=== PATIENT | male | born 1985 | race Caucasian/White ===

== ENCOUNTER 2020-04-28 11:19 | Inpatient (IN) | payer OTHER, SELFPAY ==
[2020-04-28 11:35] VITALS: BP 130/88; PULSE 127; RESP 14; TEMP 36.9; O2SAT 100; BMI 26.4
--- NOTE | 2020-04-28 11:44 | ED_ITS ---
Documented by User: ERIC Avila 04/28/20 16:32 HPI - Extremity Problem General: Chief complaint: Extremity Problem,Nontraumatic Stated complaint: L FOOT INFECTION Time Seen by Provider: 04/28/20 11:44 Source: patient Mode of arrival: ambulatory Limitations: no limitations History of Present Illness: HPI Narrative: Patient is a 34-year-old male who presents to ED today for evaluation for a left foot infection. Patient tells me approximately 8 days ago he began noticing a small amount of redness to the medial aspect of his left foot. He denies any injury or trauma. Denies any small scratches, abrasions, punctures, etc. patient states since that time. Redness has progressed substantially. He has noticed a large pus pocket to his foot. Patient is not running fevers. He has no known history of staph or MRSA. He is an IV drug user. Complaint: extremity pain and extremity swelling Onset (ago): day(s) Pain Consistency: constant Location: left Radiation: none Exacerbating factors: weight bearing, walking and palpation Associated symptoms: Reports no associated symptoms; Deny chest pain or fever(s) Review of Systems Const: Denies: fever(s), chills, body aches, fatigue or malaise Card: Denies: chest pain Resp: Denies: dyspnea GI: Denies: nausea or vomiting Musc: Reports: extremity pain (L foot) and extremity swelling (L foot) Skin/Breast: Reports: erythema (L foot) and other (blister to L foot) Neuro: Denies: numbness in extremities or sensory changes [facility] ED PFSH: Medical History (Updated 04/28/20 @ 15:21 by Pato Damian MD) Hepatitis C Surgical History (Updated 04/28/20 @ 15:22 by Pato Damian MD) History of appendectomy History of hand surgery History of shoulder surgery Family History (Updated 04/28/20 @ 15:22 by Pato Damian MD) Other CAD (coronary artery disease) Social History (Updated 04/28/20 @ 15:23 by Pato Damian MD) Smoking and tobacco status: current every day smoker smokeless tobacco Alcohol intake: current Alcohol intake frequency: 0-2 Drinks per Day Substance/Drug Use: current Substance/Drug use type: Amphetamines Desire information about substance/drug rehabilitation?: No Physical Exam Const: COMMON NORMALS: no acute distress, average body habitus, patient oriented x3, no limitations, healthy appearing, alert and well nourished GENERAL APPEARANCE: cooperative ORIENTATION/CONSCIOUSNESS: Yes awake, Yes oriented to person, Yes oriented to place and Yes oriented to time Resp: COMMON NORMALS: normal respiratory effort and clear to auscultation bilaterally AUSCULTATION: clear to auscultation bilaterally Cardio: COMMON NORMALS: regular rhythm RATE: tachycardic RHYTHM: regular rhythm Extremity: GENERAL: Yes normal exam except as noted OTHER: pt has marked swelling and erythema throughout the dorsum of his L foot; he has a very large fluctuance abscess to medial aspect that measures approximately 8cm x 9cm Neuro: COMMON NORMALS: patient oriented x3, moves all extremities, no focal motor deficits and no sensory deficits noted SENSORIUM/ORIENTATION: Yes alert, Yes oriented to person, Yes oriented to place and Yes oriented to time Skin: NARRATIVE SKIN EXAM: see extremity exam Course ED course: Delay in patient's care as labs could not be obtained due to difficulty with establishing an IV. Consultations: Consultation #1: Dr. Teran-recommends general surgery to consult on patient Consultation #2: Dr. Mott-graciously agrees to consult on patient. He requests CT with IV contrast. Requests we admit to hospitalist. Time: 14:25 Vital Signs: Vital signs: Vital Signs Temperature 98.5 F 04/28/20 11:35 Pulse Rate 74 04/28/20 12:34 Respiratory Rate 16 04/28/20 13:10 Blood Pressure 111/57 04/28/20 12:34 Pulse Oximetry 96 04/28/20 12:34 MDM - Extremity (Nontraumatic) MDM Narrative: Medical decision making narrative: Patient here with a fairly significant left foot infection/cellulitis. He has a large abscess to the medial aspect of his foot. There is no evidence for bony involvement on plain film imaging. He has a white count of 18,000. Patient was tachycardic upon arrival at 127. CRP is over 100. He does have a normal lactate. I spoke to orthopedics who requested I consult general surgery for management. Dr. Mott was gracious enough to agree to consult on this patient. We will obtain CT imaging with contrast for further evaluation. Patient was started on Vancomycin and Zosyn antibiotic therapy. Patient noted to have elevated LFTs-he has no abdominal pain. He is a known IV drug user. My suspicion would be for hepatitis C. Hepatitis panel is pending. I have spoke to Dr. Sung who will speak to hospitalist for admission. Lab Data: Labs: Lab Results 04/28/20 04/28/20 04/28/20 Range/Units 13:00 13:00 13:00 WBC 18.0 H (4.0-10.0) 10^3/ uL RBC 4.70 (4.1-5.3) 10^6/u L Hgb 14.2 (11.7-16.6) g/dL Hct 44.0 (42.0-52.0) % MCV 93.6 (80-94) fL MCH 30.2 (28.0-34.0) pg MCHC 32.3 (30.0-36.0) g/dL RDW 13.2 (12.1-15.1) % Plt Count 406 H (130-400) 10^3/c mm MPV 9.7 (7.4-10.4) fL Neut % (Auto) 79.9 % Lymph % (Auto) 11.6 % [place] % (Auto) 6.2 % Eos % (Auto) 0.8 % Baso % (Auto) 0.4 % Neut # (Auto) 14.36 H (1.8-7.7) 10^3/u L Lymph # (Auto) 2.1 (0.8-4.8) 10^3/u L [place] # (Auto) 1.1 H (0.2-0.9) 10^3/u L Eos # (Auto) 0.2 (0.0-0.8) 10^3/u L Baso # (Auto) 0.1 (0.0-0.1) 10^3/u L Nucleated RBC % (a uto) 0 % Nucleated RBCs # 0.0 /100WBC Sodium 133 L (136-145) mmol/L Potassium 4.8 (3.5-5.1) mmol/L Chloride 99 (98-107) mmol/L Carbon Dioxide 23 (22-29) mmol/L Anion Gap 15.8 (5-19) BUN 17 (6-20) mg/dL Creatinine 0.5 L (0.7-1.2) mg/dL GFR Calculation 188.1 H (90-130) mL/min Glucose 102 (65-115) mg/dL Calculated Osmolal ity 278 L (285-295) mOsm/k g Lactic Acid 1.2 (0.5-2.2) mmol/L Calcium 9.1 (8.5-10.5) mg/dL Total Bilirubin 0.4 (0.15-1.2) mg/dL AST 87 H (0-40) U/L ALT 193 H (0-41) U/L Alkaline Phosphata se 198 H (40-130) IU/L C-Reactive Protein 105.2 H (0.0-4.9) mg/L Total Protein 8.5 (6.6-8.7) g/dL Albumin 3.2 L (3.5-5.2) g/dL Globulin 5.3 H (1.3-4.6) g/dL Hepatitis A IgM Ab (Nonreactive) Hep Bs Antigen (Nonreactive) Hep B Core IgM Ab (Nonreactive) Hepatitis C Antibo dy (Nonreactive) 04/28/20 Range/Units 13:00 WBC (4.0-10.0) 10^3/ uL RBC (4.1-5.3) 10^6/u L Hgb (11.7-16.6) g/dL Hct (42.0-52.0) % MCV (80-94) fL MCH (28.0-34.0) pg MCHC (30.0-36.0) g/dL RDW (12.1-15.1) % Plt Count (130-400) 10^3/c mm MPV (7.4-10.4) fL Neut % (Auto) % Lymph % (Auto) % [place] % (Auto) % Eos % (Auto) % Baso % (Auto) % Neut # (Auto) (1.8-7.7) 10^3/u L Lymph # (Auto) (0.8-4.8) 10^3/u L [place] # (Auto) (0.2-0.9) 10^3/u L Eos # (Auto) (0.0-0.8) 10^3/u L Baso # (Auto) (0.0-0.1) 10^3/u L Nucleated RBC % (a uto) % Nucleated RBCs # /100WBC Sodium (136-145) mmol/L Potassium (3.5-5.1) mmol/L Chloride (98-107) mmol/L Carbon Dioxide (22-29) mmol/L Anion Gap (5-19) BUN (6-20) mg/dL Creatinine (0.7-1.2) mg/dL GFR Calculation (90-130) mL/min Glucose (65-115) mg/dL Calculated Osmolal ity (285-295) mOsm/k g Lactic Acid (0.5-2.2) mmol/L Calcium (8.5-10.5) mg/dL Total Bilirubin (0.15-1.2) mg/dL AST (0-40) U/L ALT (0-41) U/L Alkaline Phosphata se (40-130) IU/L C-Reactive Protein (0.0-4.9) mg/L Total Protein (6.6-8.7) g/dL Albumin (3.5-5.2) g/dL Globulin (1.3-4.6) g/dL Hepatitis A IgM Ab Non-reactive (Nonreactive) Hep Bs Antigen Non-reactive (Nonreactive) Hep B Core IgM Ab Non-reactive (Nonreactive) Hepatitis C Antibo dy Reactive H (Nonreactive) Imaging Data^: XR L foot: Radiologist's impression: [address] [address] XRay Report Signed Patient: Shreyas Corral V Unit #: [id number] : 1985 Age/Sex: 34 / M ADM Date: 04/28/20 Loc: ER Room/Bed: Attending Dr: Ordering Provider/Ordering MD: Aretha Cowan Date of Service: 04/28/20 Procedure(s): XR foot LT min 3V* [id number] Accession Number(s): [id number] Report Number: [id number] WS: [id number] Exam: XR foot LT min 3V* [id number] Date/Time of Exam: 04/28/2020 11:51 AM Reason For Exam: infection No fracture or dislocation. Soft tissue swelling and/or mass along the medial aspect of the forefoot near the first MP joint. No sign of bone destruction. XR/XR foot LT min 3V* [id number] IMPRESSION: 1. Soft tissue swelling and/or mass along the medial aspect of the forefoot as above. 2. No fracture or bone destruction noted. Dictated By: Lee Barger DO Signed By: Lee Barger DO Signed Date/Time: 04/28/20 122 DD/ 1221 Discharge Plan Discharge Patient Disposition: Admitted As Inpatient Admit Provider: Pato Damian Clinical Impression: Abscess of left foot, Cellulitis of foot, left, Methamphetamine abuse Hepatitis C Qualifiers: Viral hepatitis chronicity: unspecified Hepatic coma status: without hepatic coma Qualified Code(s): B19.20 - Unspecified viral hepatitis C without hepatic coma Condition: Stable Coding Level of Care Code ED Respiratory Care Instructor for [facility] Fwd Exam Detailed Documented by User: Vince Sung MD 04/28/20 16:51 HPI - Extremity Problem General: Chief complaint: Extremity Problem,Nontraumatic Stated complaint: L FOOT INFECTION Time Seen by Provider: 04/28/20 11:44 [facility] ED PFSH: Medical History (Updated 04/28/20 @ 15:21 by Pato Damian MD) Hepatitis C Surgical History (Updated 04/28/20 @ 15:22 by Pato Damian MD) History of appendectomy History of hand surgery History of shoulder surgery Family History (Updated 04/28/20 @ 15:22 by Pato Damian MD) Other CAD (coronary artery disease) Social History (Updated 04/28/20 @ 15:23 by Pato Damian MD) Smoking and tobacco status: current every day smoker smokeless tobacco Alcohol intake: current Alcohol intake frequency: 0-2 Drinks per Day Substance/Drug Use: current Substance/Drug use type: Amphetamines Desire information about substance/drug rehabilitation?: No Course Vital Signs: Vital signs: Vital Signs Temperature 98.5 F 04/28/20 11:35 Pulse Rate 74 04/28/20 12:34 Respiratory Rate 16 04/28/20 13:10 Blood Pressure 111/57 04/28/20 12:34 Pulse Oximetry 96 04/28/20 12:34 MDM - Extremity (Nontraumatic) MDM Narrative: Medical decision making narrative: Midlevel provider discussed the case with me and the patient does have an obvious abscess and cellulitis. Dr. Mott saw the patient in the ED and will be following the case upstairs. Patient is on IV antibiotics and stable for admission. Admitted to Dr. Damian Lab Data: Labs: Lab Results 04/28/20 04/28/20 04/28/20 Range/Units 13:00 13:00 13:00 WBC 18.0 H (4.0-10.0) 10^3/ uL RBC 4.70 (4.1-5.3) 10^6/u L Hgb 14.2 (11.7-16.6) g/dL Hct 44.0 (42.0-52.0) % MCV 93.6 (80-94) fL MCH 30.2 (28.0-34.0) pg MCHC 32.3 (30.0-36.0) g/dL RDW 13.2 (12.1-15.1) % Plt Count 406 H (130-400) 10^3/c mm MPV 9.7 (7.4-10.4) fL Neut % (Auto) 79.9 % Lymph % (Auto) 11.6 % [place] % (Auto) 6.2 % Eos % (Auto) 0.8 % Baso % (Auto) 0.4 % Neut # (Auto) 14.36 H (1.8-7.7) 10^3/u L Lymph # (Auto) 2.1 (0.8-4.8) 10^3/u L [place] # (Auto) 1.1 H (0.2-0.9) 10^3/u L Eos # (Auto) 0.2 (0.0-0.8) 10^3/u L Baso # (Auto) 0.1 (0.0-0.1) 10^3/u L Nucleated RBC % (a uto) 0 % Nucleated RBCs # 0.0 /100WBC Sodium 133 L (136-145) mmol/L Potassium 4.8 (3.5-5.1) mmol/L Chloride 99 (98-107) mmol/L Carbon Dioxide 23 (22-29) mmol/L Anion Gap 15.8 (5-19) BUN 17 (6-20) mg/dL Creatinine 0.5 L (0.7-1.2) mg/dL GFR Calculation 188.1 H (90-130) mL/min Glucose 102 (65-115) mg/dL Calculated Osmolal ity 278 L (285-295) mOsm/k g Lactic Acid 1.2 (0.5-2.2) mmol/L Calcium 9.1 (8.5-10.5) mg/dL Total Bilirubin 0.4 (0.15-1.2) mg/dL AST 87 H (0-40) U/L ALT 193 H (0-41) U/L Alkaline Phosphata se 198 H (40-130) IU/L C-Reactive Protein 105.2 H (0.0-4.9) mg/L Total Protein 8.5 (6.6-8.7) g/dL Albumin 3.2 L (3.5-5.2) g/dL Globulin 5.3 H (1.3-4.6) g/dL Hepatitis A IgM Ab (Nonreactive) Hep Bs Antigen (Nonreactive) Hep B Core IgM Ab (Nonreactive) Hepatitis C Antibo dy (Nonreactive) 04/28/20 Range/Units 13:00 WBC (4.0-10.0) 10^3/ uL RBC (4.1-5.3) 10^6/u L Hgb (11.7-16.6) g/dL Hct (42.0-52.0) % MCV (80-94) fL MCH (28.0-34.0) pg MCHC (30.0-36.0) g/dL RDW (12.1-15.1) % Plt Count (130-400) 10^3/c mm MPV (7.4-10.4) fL Neut % (Auto) % Lymph % (Auto) % [place] % (Auto) % Eos % (Auto) % Baso % (Auto) % Neut # (Auto) (1.8-7.7) 10^3/u L Lymph # (Auto) (0.8-4.8) 10^3/u L [place] # (Auto) (0.2-0.9) 10^3/u L Eos # (Auto) (0.0-0.8) 10^3/u L Baso # (Auto) (0.0-0.1) 10^3/u L Nucleated RBC % (a uto) % Nucleated RBCs # /100WBC Sodium (136-145) mmol/L Potassium (3.5-5.1) mmol/L Chloride (98-107) mmol/L Carbon Dioxide (22-29) mmol/L Anion Gap (5-19) BUN (6-20) mg/dL Creatinine (0.7-1.2) mg/dL GFR Calculation (90-130) mL/min Glucose (65-115) mg/dL Calculated Osmolal ity (285-295) mOsm/k g Lactic Acid (0.5-2.2) mmol/L Calcium (8.5-10.5) mg/dL Total Bilirubin (0.15-1.2) mg/dL AST (0-40) U/L ALT (0-41) U/L Alkaline Phosphata se (40-130) IU/L C-Reactive Protein (0.0-4.9) mg/L Total Protein (6.6-8.7) g/dL Albumin (3.5-5.2) g/dL Globulin (1.3-4.6) g/dL Hepatitis A IgM Ab Non-reactive (Nonreactive) Hep Bs Antigen Non-reactive (Nonreactive) Hep B Core IgM Ab Non-reactive (Nonreactive) Hepatitis C Antibo dy Reactive H (Nonreactive) Discharge Plan Discharge Patient Disposition: Admitted As Inpatient Admit Provider: Pato Damian Clinical Impression: Abscess of left foot, Cellulitis of foot, left, Methamphetamine abuse Hepatitis C Qualifiers: Viral hepatitis chronicity: unspecified Hepatic coma status: without hepatic coma Qualified Code(s): B19.20 - Unspecified viral hepatitis C without hepatic coma Condition: Stable Coding Level of Care Code ED Respiratory Care Instructor for [facility] Fwd Exam Detailed
--- NOTE | 2020-04-28 11:48 | XR_ITS ---
WS: [id number] Exam: XR foot LT min 3V* [id number] Date/Time of Exam: 04/28/2020 11:51 AM Reason For Exam: infection No fracture or dislocation. Soft tissue swelling and/or mass along the medial aspect of the forefoot near the first MP joint. No sign of bone destruction. XR/XR foot LT min 3V* [id number] IMPRESSION: 1. Soft tissue swelling and/or mass along the medial aspect of the forefoot as above. 2. No fracture or bone destruction noted.
[2020-04-28 12:34] VITALS: BP 111/57; PULSE 74; RESP 14; O2SAT 96
[2020-04-28 13:10] VITALS: RESP 16
[2020-04-28] MEDS: morphine 4 mg/mL SDV 1 mL IVP (13:10)
[2020-04-28] MEDS: ondansetron 2 mg/ML SDV 2 mL 4 MG IVP (13:11)
--- NOTE | 2020-04-28 13:14 | PC.NURSE ---
IVP Morphine and Zofran were given by Shreyas Hwang RN
--- NOTE | 2020-04-28 13:21 | PC.NURSE ---
Assisted PC FURNITURE MOVER DRIVER, stopped IV Abx, IVP Mso4 4mg...pushed over 2 min, IVP Zofran 4mg pushed over 2 min. Flushed with NS, restarted IV Abx.
[2020-04-28 13:34] LABS: Basophils # 0.1 10^3/uL (0.0-0.1); Basophils % 0.4 %; Eosinophils # 0.2 10^3/uL (0.0-0.8); Eosinophils % 0.8 %; Hemoglobin 14.2 g/dL (11.7-16.6); Lymphocytes # 2.1 10^3/uL (0.8-4.8); Lymphocytes % 11.6 %; Mean Corpuscular HGB Conc 32.3 g/dL (30.0-36.0); Mean Corpuscular Hemoglobin 30.2 pg (28.0-34.0); Mean Corpuscular Volume 93.6 fL (80-94); Mean Platelet Volume 9.7 fL (7.4-10.4); Monocytes # 1.1 10^3/uL (0.2-0.9); Monocytes % 6.2 %; Neutrophils # 14.36 10^3/uL (1.8-7.7); Neutrophils % 79.9 %; Nucleated Red Blood Cells % 0 %; Platelet Count 406 10^3/cmm (130-400); Red Cell Distribution Width 13.2 % (12.1-15.1)
[2020-04-28 13:58] LABS: Albumin Level 3.2 g/dL (3.5-5.2); Alkaline Phosphatase 198 IU/L (40-130); Blood Urea Nitrogen 17 mg/dL (6-20); C Reactive Protein 105.2 mg/L (0.0-4.9); Calcium 9.1 mg/dL (8.5-10.5); Carbon Dioxide 23 mmol/L (22-29); Chloride 99 mmol/L (98-107); Globulin 5.3 g/dL (1.3-4.6); Glomerular Filtration Rate 188.1 mL/min (90-130); Glucose 102 mg/dL (65-115); Osmolality Calculated 278 mOsm/kg (285-295); Sodium 133 mmol/L (136-145); Total Bilirubin 0.4 mg/dL (0.15-1.2); Total Protein 8.5 g/dL (6.6-8.7)
[2020-04-28 13:59] LABS: Lactic Sepsis W/Reflex 1.2 mmol/L (0.5-2.2)
[2020-04-28 14:01] LABS: Alanine Aminotransferase 193 U/L (0-41); Anion Gap 15.8 (5-19); Aspartate Amino Transferase 87 U/L (0-40); Potassium 4.8 mmol/L (3.5-5.1)
--- NOTE | 2020-04-28 14:33 | CT_ITS ---
WS: [id number] CONTRAST-ENHANCED CT OF THE LEFT FOOT TECHNIQUE: Contrast-enhanced CT of the left foot with coronal and sagittal reformatted images. CLINICAL INFORMATION: foot infection/abscess COMPARISON: None. DLP: 215.[address] scans at [facility] use at least one of these dose optimization techniques: automat ed exposure control; mA and/or kV adjustment per patient size (includes targeted exams where dose is matched to clinical indication); or iterative reconstruction. FINDINGS: Mild diffuse soft tissue edema lower leg and ankle. More prominent soft tissue edema overlying the le ft first MTP joint. Lenticular shaped subcutaneous fluid collection along the distal first metatarsal and first MTP joint extending to the first proximal phalanx. This is most consistent with phlegmon/a bscess. This measures approximately 6.1 x 5.3 x 0.5 CM. Fluid and edema extending into the deep first digit and forefoot soft tissues. No evidence of bony destruction to indicate acute osteomyelitis. CT/CT foot LT w con [id number] IMPRESSION: 1. Subcutaneous lenticular fluid collection likely phlegmon or abscess measuri ng 6.1 x 5.3 x 0.5 CM overlying the first medial distal phalanx, first MTP, and first proximal phalanx. 2. No evidence of underlying osteomyelitis. 3. Soft tissue edema extends into the deep first phalangeal and forefoot soft tissues. 4. Mild subcutaneous edema lower leg and foot. Notified ERIC Avila at 04/28/2020 4:18 PM.
[2020-04-28 14:36] LABS: Hepatitis A Antibody IgM Non-Reactive (Nonreactive); Hepatitis B Core IgM Non-Reactive (Nonreactive); Hepatitis B Surface Antigen Non-Reactive (Nonreactive)
[2020-04-28] MEDS: piperacillin-tazobactam 3.375 GM in sodium chloride 0.9% (plus) 50 ML IV (14:48)
[2020-04-28 15:10] LABS: Hepatitis C Virus Antibody Reactive (Nonreactive)
--- NOTE | 2020-04-28 15:19 | PM.HP ---
Providers/Chief Complaint Admitting Physician: Pato Damian Chief Complaint: L FOOT INFECTION History of Present Illness Shreyas Corral is a 34 year old male presenting to the emergency department with history of some foot problems for the last 7 to 8 days, but has been just discomfort in his forefoot. Over the last 24 hours it is been swollen and become red. He denies any fever. He has not had any injections at that site. He denies any significant abscess formation in the past. He denies any vomiting. He reports it is painful. He reports no previous trauma. He reports no other significant medical problems. Review of Systems General: Reports: 10 or more systems reviewed and unremarkable except in HPI and below Const: Denies: fever(s) or chills Eyes: Denies: change in vision ENMT: Denies: throat pain Card: Denies: chest pain Resp: Denies: dyspnea GI: Denies: abdominal pain : Denies: flank pain Musc: Reports: extremity pain and extremity swelling; Denies: neck pain Skin/Breast: Denies: rash Neuro: Denies: headache(s) Psych: Denies: anxiety or depression Endo: Denies: polyuria Jona/Lymph: Denies: easy bruising All/Imm: Denies: urticaria Medications/Allergies Home Medications Medication Instructions Recorded Confirmed Last Taken Type acetaminophen [Tylenol Extra 1,000 - 2,000 mg PO PRN 04/28/20 04/28/20 04/28/20 09:30 History Strength] aspirin [Aspir-81] 81 mg PO PRN 04/28/20 04/28/20 04/28/20 History Allergies Allergy/AdvReac Type Severity Reaction Status Date / Time No Known Allergies Allergy Verified 04/28/20 14:15 PFSH Acute PFSH: Medical History (Updated 04/28/20 @ 15:21 by Pato Damian MD) Hepatitis C Surgical History (Updated 04/28/20 @ 15:22 by Pato Damian MD) History of appendectomy History of hand surgery History of shoulder surgery Family History (Updated 04/28/20 @ 15:22 by Pato Damian MD) Other CAD (coronary artery disease) Social History (Updated 04/28/20 @ 15:23 by Pato Damian MD) Smoking and tobacco status: current every day smoker smokeless tobacco Alcohol intake: current Alcohol intake frequency: 0-2 Drinks per Day Substance/Drug Use: current Substance/Drug use type: Amphetamines Desire information about substance/drug rehabilitation?: No Vitals/I&O/Wt Last Vital Signs Temp 98.5 F 04/28/20 11:35 Pulse 74 04/28/20 12:34 Resp 16 04/28/20 13:10 BP 111/57 04/28/20 12:34 Pulse Ox 96 04/28/20 12:34 Weight last 48 hrs Weight 90.718 kg Physical Exam Narrative: EXAM NARRATIVE: General exam is a white male in no apparent distress HEENT: Pupils equally round. Oropharynx clear. Neck is supple no lymphadenopathy or thyromegaly Cardiovascular regular rate and rhythm without murmur. No S3 or S4 Lungs are clear no wheezing or crackles Abdomen is soft nontender with positive bowel sounds. No obvious organomegaly is deferred Extremities no cyanosis or clubbing. Left lower extremity with significant erythema in the foot, mainly medially with a large blister which is fluctuant underneath. No loss of sensation to the toes. Cap refill less than 2 seconds. Skin see findings above Neuro no obvious focal deficits Data : 04/28/20 13:00 04/28/20 13:00 Micro: Microbiology 04/28/20 13:10 Blood Culture - Preliminary Blood SPECIMEN COLLECTED 04/28/20 13:00 Blood Culture - Preliminary Blood SPECIMEN COLLECTED Other data: LFTs are elevated with AST of 87, ALT of 193, alk phos 198, CRP is 105 Hepatitis C antibody is positive A&P Assessment and plan (1) Abscess of left foot: Patient denies any injections in the foot or trauma Vancomycin and Zosyn initiated by the emergency department which is appropriate Surgery consult for I and D Awaiting CT of foot Blood culture was drawn on admission If blood culture is positive, any recurrent fevers would consider repeating blood culture and possible echocardiogram Status: Acute (2) Cellulitis of foot, left: See notations above Status: Acute (3) Methamphetamine abuse: At this point he does not want rehabilitation information. He has been to rehabilitation in the past. Status: Acute (4) Hepatitis C: Hepatitis C antibody positive Outpatient follow-up will be recommended Status: Acute Qualifiers: Hepatic coma status: without hepatic coma Viral hepatitis chronicity: unspecified Qualified Code(s): B19.20 - Unspecified viral hepatitis C without hepatic coma Additional A&P Information Full code Heparin for DVT prophylaxis Attestations Medical Necessity Statement*: Will need greater than 2 midnight stay for treatment of cellulitis and abscess left lower extremity with IV antibiotics. Time Spent in Patient Care: Greater than 35 minutes Coding Level of Care Code Acute Counterintelligence Analyst for [facility] Fwd Diagnoses Abscess of left foot L02.612 Cellulitis of foot, left L03.116 Methamphetamine abuse F15.10 Hepatitis C B19.20 Hepatic coma status: without hepatic coma Viral hepatitis chronicity: unspecified
--- NOTE | 2020-04-28 15:34 | PC.NURSE ---
Read and agree with assessment
[2020-04-28] MEDS: vancomycin 1,000 MG in sodium chloride 0.9% 250 ML 250 MG IV (15:36)
--- NOTE | 2020-04-28 15:57 | PM.CONSULT ---
Providers/Reason For Consult Consulting Physican/Specialty*: Carlos Alberto Mott MD Reason for Consult*: Left foot abscess Attending Physician: Pato Damian MD History of Present Illness History of Present Illness Chief Complaint: My left foot hurts History of present illness: Mr. Shreyas Corral is a pleasant 34 year old male presents to the emergency department with worsening symptoms of left foot associated with painful swelling over the past 10 days or so, patient denies specific history of trauma yet he is well-known with history of intravenous drug administration. But he denies any history of IV drug use to his left foot. Patient does not give history of diabetes, and started with a small lesion that got worse as his symptoms has been worsening since then he decided to come to the emergency department for further evaluation and work-up, he denies history of nausea vomiting fevers or chills. Did not have this issue before X-ray left foot: 1. Soft tissue swelling and/or mass along the medial aspect of the forefoot as above. 2. No fracture or bone destruction noted. Followed by CT scan of the left foot that showed: IMPRESSION: 1. Subcutaneous lenticular fluid collection likely phlegmon or abscess measuring 6.1 x 5.3 x 0.5 CM overlying the first medial distal phalanx, first MTP, and first proximal phalanx. 2. No evidence of underlying osteomyelitis. 3. Soft tissue edema extends into the deep first phalangeal and forefoot soft tissues. 4. Mild subcutaneous edema lower leg and foot. Ankle and foot surgery consultation was initiated yet patient's care was deferred to general surgery for potential intervention and further management.Patient was seen and evaluated in the emergency department room #1 Review of Systems General: Reports: 10 or more systems reviewed and unremarkable except in HPI and below Meds/Allergies Home Medications and Allergies Home Medications Medication Instructions Recorded Confirmed Last Taken Type acetaminophen [Tylenol Extra 1,000 - 2,000 mg PO PRN 04/28/20 04/28/20 04/28/20 09:30 History Strength] aspirin [Aspir-81] 81 mg PO PRN 04/28/20 04/28/20 04/28/20 History Allergies Allergy/AdvReac Type Severity Reaction Status Date / Time No Known Allergies Allergy Verified 04/28/20 16:57 Current Medications Current Medications Generic Name Dose Route Start Last Admin Trade Name Freq PRN Reason Stop Dose Admin Vancomycin HCl 1,000 mg/ 250 mls @ 250 mls/hr 04/28/20 15:10 04/28/20 15:36 Sodium Chloride IV 04/28/20 16:09 250 mls/hr ONCE ONE Administration Protocol PFSH Acute PFSH: Medical History Hepatitis C Surgical History History of appendectomy History of hand surgery History of shoulder surgery Family History Other CAD (coronary artery disease) Social History Smoking and tobacco status: current every day smoker smokeless tobacco Alcohol intake: current Alcohol intake frequency: 0-2 Drinks per Day Substance/Drug Use: current Substance/Drug use type: Amphetamines Desire information about substance/drug rehabilitation?: No Vitals/I&O/Wt Last Vital Signs Temp 98.5 F 04/28/20 11:35 Pulse 74 04/28/20 12:34 Resp 16 04/28/20 13:10 BP 111/57 04/28/20 12:34 Pulse Ox 96 04/28/20 12:34 Weight last 48 hrs Weight 200 lb Physical Exam Narrative: EXAM NARRATIVE: Patient is conscious alert oriented X3 BMI 26.4 Head and neck examination PERRLA no masses no cervical lymphadenopathy no jaundice Cardiac examination audible S1-S2 no murmurs no gallops no arrhythmias Chest is clear bilateral,abscence of Rhonchi or wheezes,no surgical emphysema Abdomen nontender nondistended soft no organomegaly guarding or rigidity/no signs of peritonitis Left foot shows forefoot swelling and a large bleb located on the medial aspect of the left big toe with abscess formation and cellulitic changes extending proximally to the left mid foot, no evidence of crepitus or signs of necrotizing soft tissue infection, difficulty in palpation of left dorsalis pedis artery because of the swelling yet intact left posterior tibial artery. Capillary refill less than 2-seconds Data Micro: Micro: Microbiology 04/28/20 13:10 Blood Culture - Pr eliminary Blood SPECIMEN [facility] 04/28/20 13:00 Blood Culture - Pr eliminary Blood SPECIMEN [facility] A&P Assessment and plan (1) Abscess of left foot: After thorough history physical examination and reviewing the chart and images of the x-rays and CT scan with my personal interpretation, patient does have left forefoot abscess that would require incision and drainage in the OR tomorrow after starting the patient on broad-spectrum IV antibiotics to help with the cellulitis. IV fluid resuscitation per hospitalist service and broad-spectrum IV antibiotic therapy I did discuss with the patient the potential risks, benefits, alternatives and indications and he is aware and he decided to proceed accordingly understanding that he might require future surgical interventions and longer term wound care. We will plan to keep the patient n.p.o. after midnight. Assurance and education All questions have been answered and all concerns have been addressed to patient's satisfaction. Status: Acute Consult Attestations Medical Necessity Statement: Hospitalization for medical and surgical care in the form of incision and drainage of left foot Time Spent in Patient Care: (>than 50% of time spent in counselling and/or direct pt care on unit). 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
[2020-04-28] MEDS: iohexol 300 mg/mL 100 mL Btl IV (15:59)
[2020-04-28] MEDS: sodium chloride 0.9% 1,000 ML 75 ML IV (16:17)
[2020-04-28 17:05] VITALS: BP 118/70; PULSE 98; RESP 16; O2SAT 100
[2020-04-28 17:19] VITALS: BP 121/73; PULSE 100; RESP 17; TEMP 37; O2SAT 99
--- NOTE | 2020-04-28 17:43 | PC.RESP ---
Smoking Cessation information sent to patient.
[2020-04-28 19:05] VITALS: BP 110/62; PULSE 92; RESP 18; TEMP 36.8; O2SAT 99
[2020-04-28] MEDS: heparin 5,000 unit/mL INJ 1 mL 5000 UNIT SUBCUT (21:06)
[2020-04-28] MEDS: vancomycin 1,500 MG/300 ML PIGGYBACK 200 MG IV (22:08)
[2020-04-29] VITALS (19 sets, daily range): BP systolic 102–143; BP diastolic 47–83; PULSE 78–134; RESP 16–22; TEMP 36.4–37.7; O2SAT 94–100
[2020-04-29 01:03] LABS: Amphetamines Screen Urine Positive (Negative); Barbiturates Screen Urine Negative (Negative); Benzodiazepines Screen Urine Negative (Negative); Cocaine Screen Urine Negative (Negative); Opiate Screen Urine Positive (Negative); PCP Screen Urine Negative (Negative); THC Screen Urine Positive (Negative)
[2020-04-29 05:10] LABS: Basophils # 0.1 10^3/uL (0.0-0.1); Basophils % 0.5 %; Eosinophils # 0.2 10^3/uL (0.0-0.8); Eosinophils % 1.4 %; Hematocrit 42.5 % (42.0-52.0); Hemoglobin 13.8 g/dL (11.7-16.6); Lymphocytes % 20.6 %; Mean Corpuscular HGB Conc 32.5 g/dL (30.0-36.0); Mean Corpuscular Hemoglobin 30.7 pg (28.0-34.0); Mean Corpuscular Volume 94.4 fL (80-94); Mean Platelet Volume 9.5 fL (7.4-10.4); Monocytes # 1.1 10^3/uL (0.2-0.9); Monocytes % 7.2 %; Neutrophils # 10.12 10^3/uL (1.8-7.7); Neutrophils % 68.9 %; Nucleated Red Blood Cells % 0 %; Platelet Count 380 10^3/cmm (130-400); Red Cell Distribution Width 13.2 % (12.1-15.1); White Blood Count 14.7 10^3/uL (4.0-10.0)
[2020-04-29] MEDS: vancomycin 1,500 MG/300 ML PIGGYBACK 200 MG IV ×2 (05:25→22:34)
[2020-04-29 05:32] LABS: Alanine Aminotransferase 175 U/L (0-41); Albumin Level 3.3 g/dL (3.5-5.2); Alkaline Phosphatase 188 IU/L (40-130); Anion Gap 14.3 (5-19); Aspartate Amino Transferase 83 U/L (0-40); Blood Urea Nitrogen 15 mg/dL (6-20); Calcium 9.4 mg/dL (8.5-10.5); Carbon Dioxide 24 mmol/L (22-29); Chloride 101 mmol/L (98-107); Globulin 5.1 g/dL (1.3-4.6); Glomerular Filtration Rate 152.4 mL/min (90-130); Glucose 78 mg/dL (65-115); Osmolality Calculated 280 mOsm/kg (285-295); Potassium 4.3 mmol/L (3.5-5.1); Sodium 135 mmol/L (136-145); Total Bilirubin 0.6 mg/dL (0.15-1.2); Total Protein 8.4 g/dL (6.6-8.7)
[2020-04-29] MEDS: heparin 5,000 unit/mL INJ 1 mL 5000 UNIT SUBCUT ×2 (06:37→18:43)
[2020-04-29] MEDS: piperacillin-tazobactam 3.375 GM in sodium chloride 0.9% (plus) 50 ML IV ×2 (07:28)
--- NOTE | 2020-04-29 09:22 | P.PN_ITS ---
Documented by User: MARTHA Mercedes STDISAIAH 04/29/20 09:44 Subjective Subjective: Interval history: Shreyas reports he is doing well. No fevers overnight, WBC decreased since yesterday. Had bleeding and drainage from blister rupture on his left foot overnight. Reports he can't bear weight on his left foot and the pain is currently a 8/10. Reports the redness has not spread since his hospital admission. Denies any other complaints. Scheduled for incision and drainage in OR today by Dr. Mott. Medications: Reviewed: Yes Vitals/I&O/Wt Last Vital Signs Temp 98.7 F 04/29/20 07:30 Pulse 78 04/29/20 08:37 Resp 16 04/29/20 07:30 BP 109/68 04/29/20 07:30 Pulse Ox 94 04/29/20 08:37 04/28/20 04/29/20 04/29/20 22:59 06:59 14:59 Intake Total 650 / 650 300 / 300 Output Total 0 / 0 1400 / 1400 Balance 0 / 0 -750 / -750 300 / 300 Weight last 48 hrs Weight 90.718 kg Physical Exam Narrative: EXAM NARRATIVE: General: white male in no apparent distress Cardiovascular: regular rate and rhythm, no murmur Lungs: clear bilaterally, no wheezes Abdomen: soft, nontender to palpation, positive bowel sounds Left forefoot is erythematous, swollen. Redness has not extended proximally since yesterday. Abscess formation on medial aspect of left foot. Data : 04/29/20 04:35 04/29/20 04:35 Micro: Microbiology 04/28/20 13:10 Blood Culture - Preliminary Blood SPECIMEN COLLECTED 04/28/20 13:00 Blood Culture - Preliminary Blood SPECIMEN COLLECTED A&P Assessment and plan (1) Abscess of left foot: Surgery consult. Incision and drainage today by Dr. Mott. Foot x-ray showed soft tissue swelling and/or mass along medial aspect of forefoot, no fracture or bone destruction. 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 I interviewed the patient as well. He believes the edema and erythema is slightly less in the foot. Medications: Reviewed: Yes Physical Exam Narrative: EXAM NARRATIVE: Agree with above. No changes. I examined the pat ient as well. Data : 04/29/20 04:35 04/29/20 04:35 A&P Assessment and plan (1) Cellulitis of foot, left: Continue vancomycin and Zosyn as above Clinically he appears to be improving and white blood cell count decreasing Blood cultures negative to date Surgery today for abscess drainage Will need primary care provider and surgery follow-up as an outpatient Probable discharge in 1 to 2 days if continues to improve Status: Acute (2) Methamphetamine abuse: Encourage abstinence. Rehabilitation information offered Status: Acute (3) Hepatitis C: Encourage outpatient treatment Status: Acute Qualifiers: Hepatic coma status: without hepatic coma Viral hepatitis chronicity: unspecified Qualified Code(s): B19.20 - Unspecified viral hepatitis C without hepatic coma Additional A&P Information Full code Heparin for DVT prophylaxis Attestations Medical Necessity Statement*: Needs continued hospitalization for IV antibiotics secondary to large left foot abscess requiring incision and drainage. 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
--- NOTE | 2020-04-29 10:10 | PC.CHAP ---
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 visit [] Patient/Family/Request visit [] Outpatient visit [] Follow-up visit [] Physician referral [] Code/Alert [X] Routine visit [] Staff referral [] Actively dying [] Patient sleeping [] Family support [] [] Out of room [] Palliative care [] [] Receiving care in room [] Pre-surgical visit [] Trauma [] Long length of stay [] ICU visit [] Other: Relational/Emotional Strength [X]X Patient feels connected with others/family/visitors/staff [] Distress [] Loneliness/isolation [] Abandonment Spirituality of Patient [X] Person of Raegan []X Attends Christianity of their Raegan [X] Believes in Prayer [] Reads Bible or Voodoo materials [] There are Spiritual issues to be addressed [employer] Staff Officer Interventions [X] Prayer [X] Active listening [] Non-anxious presence [] Spiritual/emotional support [] Crisis/trauma care [] Spiritual counseling [] Bereavement support [] Provided bereavement packet [] Provided Bible/devotional materials [] Provided toy/stuffed animal, coloring book to patient or family member [] Provided Communion [] Anointing/[place] [] Salvation [] Completed spiritual assessment [] Other: Impact on Illness or Injury [] Angry [] Fearful [] Anxious [] Often cries [] Exhaustion [] Unable to work [] Unable to attend confucianist [] Unable to walk/stand [] Unable to read [] Unable to drive [] Unable to eat/drink [] Unable to sleep [] Unable to be with family [] Patient intubated [] Other: Summary PATIENT HASNPAIN BUT GOOD ATTITUDE Time spent with patient 10 MIN
[2020-04-29] MEDS: acetaminophen 325 mg Tablet 650 MG PO (11:19)
--- NOTE | 2020-04-29 13:50 | ANES.PREANE2 ---
Pre-Anesthetic Assessment Pre-Anesthetic Assessment: Height/Weight: Height 1.85 m Weight 90.718 kg Temp Pulse Resp BP Pulse Ox 98.8 F 80 16 108/68 100 04/29/20 10:54 04/29/20 10:54 04/29/20 10:54 04/29/20 10:54 04/29/20 10:54 Preop Diagnosis: Left foot abscess Proposed Procedure: Operation Date: 04/29/20 13:35 Proposed Procedures p Incision And Drainage Left Foot(Left) - Carlos Alberto Mott MD Was Beta Gómez taken within 24 hours: N/A Social: Social History: Tobacco and No alcohol Exam: Pre-Anes Outpt Exam: alert, oriented x 3 and regular rate & rhythm Airway: Submandibular: WNL Cervical ROM: WNL MP: 2 Dentition: Full Pulmonary: Pulmonary: COPD Hepatic: Hepatic: Hepatitis (C) Comments: Meth abuse Anesthetic Plan: ASA status: 3 Anesthesia: General Risk of > 500 ml blood loss (7ml/kg in children): No Meds/Allergies Current Medications: Current Medications Generic Name Dose Route Start Last Admin Trade Name Freq PRN Reason Stop Dose Admin Acetaminophen 650 mg 04/28/20 17:19 04/29/20 11:19 Acetaminophen 32 5 Mg Tablet PO 650 mg Q6H PRN Administration Mild/Mod Pain Or Temp >/= 101 Heparin Sodium (Be ef Lung) 5,000 unit 04/28/20 19:00 04/29/20 06:37 Heparin 5,000 Un it/Ml Inj 1 Ml SUBCUT 5,000 unit Q12H ASHTYN Administration Sodium Chloride 1,000 mls @ 75 ml s/hr 04/28/20 15:45 04/29/20 09:26 Sodium Chloride 0.9% IV Infused .[id number] ASHTNY Infusion Piperacillin Sod/T azobactam 50 mls @ 12.5 mls /hr 04/28/20 23:00 04/29/20 11:34 Sod 3.375 gm/ So dium Chloride IV Infused Q8H ASHTYN Infusion Protocol Vancomycin/PEG/NAD A/Lysine/Water 1,500 mg in 300 m ls @ 200 mls/hr 04/28/20 22:00 04/29/20 07:08 Vancocin IV Infused Q8H ASHTYN Infusion PFSH Anesthesia PFSH: Medical History Hepatitis C Surgical History History of appendectomy History of hand surgery History of shoulder surgery Family History Other CAD (coronary artery disease) Social History Smoking and tobacco status: current every day smoker smokeless tobacco Alcohol intake: current Alcohol intake frequency: 0-2 Drinks per Day Desire information about substance/drug rehabilitation?: No Data Anesthesia CBC & Chem 7: 04/29/20 04:35 04/29/20 04:35 Other Labs: Laboratory Results - last 48 hr 04/28/20 04/28/20 04/28/20 13:00 13:00 13:00 WBC 18.0 H RBC 4.70 Hgb 14.2 Hct 44.0 MCV 93.6 MCH 30.2 MCHC 32.3 RDW 13.2 Plt Count 406 H MPV 9.7 Neut % (Auto) 79.9 Lymph % (Auto) 11.6 [place] % (Auto) 6.2 Eos % (Auto) 0.8 Baso % (Auto) 0.4 Neut # (Auto) 14.36 H Lymph # (Auto) 2.1 [place] # (Auto) 1.1 H Eos # (Auto) 0.2 Baso # (Auto) 0.1 Nucleated RBC % (auto) 0 Nucleated RBCs # 0.0 Sodium 133 L Potassium 4.8 Chloride 99 Carbon Dioxide 23 Anion Gap 15.8 BUN 17 Creatinine 0.5 L GFR Calculation 188.1 H Glucose 102 Calculated Osmolality 278 L Lactic Acid 1.2 Calcium 9.1 Magnesium Total Bilirubin 0.4 AST 87 H ALT 193 H Alkaline Phosphatase 198 H C-Reactive Protein 105.2 H Total Protein 8.5 Albumin 3.2 L Globulin 5.3 H Urine Opiates Screen Ur Barbiturates Screen Ur Phencyclidine Scrn Ur Amphetamines Screen U Benzodiazepines Scrn Urine Cocaine Screen U Marijuana (THC) Screen Hepatitis A IgM Ab Hep Bs Antigen Hep B Core IgM Ab Hepatitis C Antibody 04/28/20 04/29/20 04/29/20 13:00 00:30 04:35 WBC 14.7 H RBC 4.50 Hgb 13.8 Hct 42.5 MCV 94.4 H MCH 30.7 MCHC 32.5 RDW 13.2 Plt Count 380 MPV 9.5 Neut % (Auto) 68.9 Lymph % (Auto) 20.6 [place] % (Auto) 7.2 Eos % (Auto) 1.4 Baso % (Auto) 0.5 Neut # (Auto) 10.12 H Lymph # (Auto) 3.0 [place] # (Auto) 1.1 H Eos # (Auto) 0.2 Baso # (Auto) 0.1 Nucleated RBC % (auto) 0 Nucleated RBCs # 0.0 Sodium Potassium Chloride Carbon Dioxide Anion Gap BUN Creatinine GFR Calculation Glucose Calculated Osmolality Lactic Acid Calcium Magnesium Total Bilirubin AST ALT Alkaline Phosphatase C-Reactive Protein Total Protein Albumin Globulin Urine Opiates Screen Positive H Ur Barbiturates Screen Negative Ur Phencyclidine Scrn Negative Ur Amphetamines Screen Positive H U Benzodiazepines Scrn Negative Urine Cocaine Screen Negative U Marijuana (THC) Screen Positive H Hepatitis A IgM Ab Non-reactive Hep Bs Antigen Non-reactive Hep B Core IgM Ab Non-reactive Hepatitis C Antibody Reactive H 04/29/20 04:35 WBC RBC Hgb Hct MCV MCH MCHC RDW Plt Count MPV Neut % (Auto) Lymph % (Auto) [place] % (Auto) Eos % (Auto) Baso % (Auto) Neut # (Auto) Lymph # (Auto) [place] # (Auto) Eos # (Auto) Baso # (Auto) Nucleated RBC % (auto) Nucleated RBCs # Sodium 135 L Potassium 4.3 Chloride 101 Carbon Dioxide 24 Anion Gap 14.3 BUN 15 Creatinine 0.6 L GFR Calculation 152.4 H Glucose 78 Calculated Osmolality 280 L Lactic Acid Calcium 9.4 Magnesium 2.0 Total Bilirubin 0.6 AST 83 H ALT 175 H Alkaline Phosphatase 188 H C-Reactive Protein Total Protein 8.4 Albumin 3.3 L Globulin 5.1 H Urine Opiates Screen Ur Barbiturates Screen Ur Phencyclidine Scrn Ur Amphetamines Screen U Benzodiazepines Scrn Urine Cocaine Screen U Marijuana (THC) Screen Hepatitis A IgM Ab Hep Bs Antigen Hep B Core IgM Ab Hepatitis C Antibody Micro: Microbiology 04/28/20 13:10 Blood Culture - Preliminary Blood NEGATIVE TO DATE 04/28/20 13:00 Blood Culture - Preliminary Blood NEGATIVE TO DATE Cardiac Studies: No Data to Display
[2020-04-29] MEDS: lidocaine 2% INJ 20 mL INJECTION (15:28)
--- NOTE | 2020-04-29 15:34 | PM.OP ---
Operative Report Date of procedure: April 29, 2020 Pre-op Diagnosis: Left foot abscess Post-op diagnosis: same Post-op Findings: Left foot abscess Post debridement measurements 9 x 4.5 x [address] to the musculoskeletal layer Procedure Done: Incision and drainage of left foot abscesses Sharp debridement of abscess cavity Implants: Large piece of Surgicel followed by packing with 1 inch Nu Gauze soaked in lidocaine 2% Specimens removed/disposition: Swabs for cultures and sensitivities Tissues for cultures and sensitivities Surgeon: Carlos Alberto Mott Technical Documentation Specialist: monitor tech Karan Circulating nurse Dary Felix Anesthesia: General (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 Time-out was done verifying the patient's name/date of /planned procedure and destination after the procedure, all were in agreement Patient ready have been discharging pus from the medial aspect of the left big toe, isolated skin was debrided and I did extend an incision at the medial aspect of the left big toe cephalad and caudad and gush of pus was revealed swabs were taken for cultures and sensitivities as well as tissues sent for microbiology. Sharp debridement of the abscess cavity was done of necrotic tissues all the way to the musculofascial layer and there was more pus revealed from the deeper layer of the sole of the left foot that was drained and all loculations were taken down by the examining finger. Followed by curetting the abscess cavity, unhealthy skin edges were sharply removed. Post incision and drainage measurements 9 x 4.5 x [address] to the musculoskeletal layer. Copious and Thorough irrigation with warm saline was done using Pulsavac, followed by appropriate hemostasis including cauterization followed by large piece of Surgicel placed in the depth of the abscess cavity, then One inch Nu Gauze impregnated and lidocaine 2% was used to pack the abscess cavity.Followed by ABDs Kerlix and Wayne wraps. Patient tolerated the procedure well, count of instruments, needles and sponges were completed at the end of the procedure.And then patient was taken to the recovery area in stable condition. I Was present for the whole entire procedure
--- NOTE | 2020-04-29 15:40 | P.PCN_ITS ---
PACU note PACU note: VSS, Good respiratory effort, report to ESCALATOR ATTENDANT Post-Anesthesia Exam: awake
--- NOTE | 2020-04-29 15:40 | PM.PACU ---
PACU note PACU note: VSS, Good respiratory effort, report to TANK INSULATOR RUBBER Post-Anesthesia Exam: awake
--- NOTE | 2020-04-29 16:16 | SUR.PHASEI ---
1559 PT AWAKE ALERT TALKATIVE, ORIENTED X 3 TAKING SIPS OF SPRITE, DENIES PAIN AND NAUSEA, WANTS TO EAT, PT TO FLOOR PER CART PT UP WALKED TO BED WITH NO ASSIST, VSS. HANDOFF AT BEDSIDE WITH FLOOR NURSE.
[2020-04-29] MEDS: morphine 4 mg/mL SDV 1 mL 2 MG IVP (16:21)
--- NOTE | 2020-04-29 16:26 | ANE.PACU2 ---
Inpatient post-anesthesia follow up: Airway intact: Yes Vital signs: Temperature 98.3 F Pulse Rate [Left] 127 Pulse Rate 97 Respiratory Rate 16 Blood Pressure [Le ft Arm] 130/88 Blood Pressure 121/70 Pulse Oximetry 99 Oxygen Delivery Me thod Room Air Oxygen Flow Rate 8 Fraction of Inspir ed Oxygen Hydration adequate: Yes Nausea and vomiting: No Pain level: 2 Mental status: Baseline
[2020-04-29] MEDS: HYDROcodone-acetaminophen 5-325 mg Tablet 1 TAB PO (18:43)
[2020-04-29 22:03] LABS: Vancomycin Trough 6.6 ug/mL (10-15)
[2020-04-29] MEDS: sodium chloride 0.9% 1,000 ML 75 ML IV (22:24)
--- NOTE | 2020-04-29 22:31 | PC.NURSE ---
Handy fan came back 6.6. Called pharmacy and they said to give next dose.
[2020-04-30] MEDS: piperacillin-tazobactam 3.375 GM in sodium chloride 0.9% (plus) 50 ML IV ×2 (00:15→06:53)
[2020-04-30 00:31] VITALS: RESP 16
[2020-04-30] MEDS: morphine 4 mg/mL SDV 1 mL 2 MG IVP (00:31)
[2020-04-30] MEDS: HYDROcodone-acetaminophen 5-325 mg Tablet 1 TAB PO ×2 (02:08→09:05)
[2020-04-30 02:21] LABS: Basophils # 0.1 10^3/uL (0.0-0.1); Basophils % 0.5 %; Eosinophils # 0.2 10^3/uL (0.0-0.8); Eosinophils % 1.6 %; Hematocrit 39.6 % (42.0-52.0); Hemoglobin 13.2 g/dL (11.7-16.6); Lymphocytes # 2.6 10^3/uL (0.8-4.8); Mean Corpuscular HGB Conc 33.3 g/dL (30.0-36.0); Mean Corpuscular Hemoglobin 30.8 pg (28.0-34.0); Mean Corpuscular Volume 92.3 fL (80-94); Mean Platelet Volume 9.3 fL (7.4-10.4); Neutrophils # 8.64 10^3/uL (1.8-7.7); Neutrophils % 67.9 %; Nucleated Red Blood Cells % 0 %; Platelet Count 379 10^3/cmm (130-400); Red Blood Count 4.29 10^6/uL (4.1-5.3); White Blood Count 12.7 10^3/uL (4.0-10.0)
[2020-04-30 02:41] LABS: Anion Gap 10.8 (5-19); Blood Urea Nitrogen 17 mg/dL (6-20); Calcium 8.4 mg/dL (8.5-10.5); Carbon Dioxide 25 mmol/L (22-29); Chloride 102 mmol/L (98-107); Glomerular Filtration Rate 152.4 mL/min (90-130); Glucose 135 mg/dL (65-115); Osmolality Calculated 282 mOsm/kg (285-295); Potassium 3.8 mmol/L (3.5-5.1); Sodium 134 mmol/L (136-145)
[2020-04-30 04:35] VITALS: BP 130/70; PULSE 104; RESP 18; TEMP 37.6; O2SAT 97
[2020-04-30] MEDS: vancomycin 1,500 MG/300 ML PIGGYBACK 200 MG IV (05:11)
[2020-04-30] MEDS: heparin 5,000 unit/mL INJ 1 mL 5000 UNIT SUBCUT (06:54)
[2020-04-30 07:31] VITALS: BP 126/78; PULSE 88; RESP 16; TEMP 37.2; O2SAT 99
--- NOTE | 2020-04-30 07:57 | PM.PN ---
Documented by User: MARTHA Mercedes STDISAIAH 04/30/20 08:07 Subjective Subjective: Interval history: Shreyas reports he is doing well. He had an incision and drainage of left foot abscess on 04/29. He reports he tolerated the procedure well and is only having slight pain in his left foot. No nausea, vomiting, SOB, or chest pain. Medications: Reviewed: Yes Vitals/I&O/Wt Last Vital Signs Temp 98.9 F 04/30/20 07:31 Pulse 88 04/30/20 07:31 Resp 16 04/30/20 07:31 BP 126/78 04/30/20 07:31 Pulse Ox 99 04/30/20 07:31 04/29/20 04/30/20 04/30/20 22:59 06:59 14:59 Intake Total 580 / 1930 650 / 2580 Output Total 1175 / 1175 1200 / 2375 500 / 500 Balance -595 / 755 -550 / 205 -500 / -500 Weight last 48 hrs Weight 90.718 kg Physical Exam Narrative: EXAM NARRATIVE: General: white male in no apparent distress Cardiovascular: regular rate and rhythm, no murmur Lungs: clear, no wheezing or crackles Abdomen: soft, nondistended, nontender, positive bowel sounds Right lower extremity: no edema or cyanosis Left lower extremity: no edema, left foot bandaged from incision and drainage on 04/29 Data : 04/30/20 01:43 04/30/20 01:43 Micro: Microbiology 04/28/20 13:10 Blood Culture - Preliminary Blood NEGATIVE TO DATE 04/28/20 13:00 Blood Culture - Preliminary Blood NEGATIVE TO DATE A&P Assessment and plan (1) Cellulitis of foot, left: Continue vancomycin and Zosyn as above Clinically he appears to be improving and white blood cell count decreasing Blood cultures negative to date Surgery 04/29 for abscess drainage Will need primary care provider and surgery follow-up as an outpatient Probable discharge in 1 to 2 days if continues to improve Status: Acute (2) Methamphetamine abuse: Encourage abstinence. 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 Agree with above Data : 04/30/20 01:43 04/30/20 01:43 A&P Additional A&P Information No overall changes. Discharging today. See discharge summary Attestations Medical Necessity Statement*: Discharge today Coding Level of Care Code Acute Director Of [employer] for g Fwd Diagnoses Cellulitis of foot, left L03.116 Methamphetamine abuse F15.10 Hepatitis C B19.20 Hepatic coma status: without hepatic coma Viral hepatitis chronicity: unspecified
--- NOTE | 2020-04-30 08:54 | PM.PN ---
Subjective Subjective: Interval history: Patient overall feels better and doing well yet sore, otherwise no acute events overnight Vitals/I&O/Wt Last Vital Signs Temp 98.9 F 04/30/20 07:31 Pulse 88 04/30/20 07:31 Resp 16 04/30/20 07:31 BP 126/78 04/30/20 07:31 Pulse Ox 99 04/30/20 07:31 04/29/20 04/30/20 04/30/20 22:59 06:59 14:59 Intake Total 580 / 1930 650 / 2580 360 / 360 Output Total 1175 / 1175 1200 / 2375 500 / 500 Balance -595 / 755 -550 / 205 -140 / -140 Weight last 48 hrs Weight 200 lb Physical Exam Narrative: EXAM NARRATIVE: Patient is conscious alert oriented X3 BMI 26.4 Left foot wound shows residual necrotic tissues yet there is no evidence of pus and much less cellulitis almost fading and no swelling appreciated Dressing was removed and repacking was done by me bedside Data : 04/30/20 01:43 04/30/20 01:43 Micro: Microbiology 04/28/20 13:10 Blood Culture - Preliminary Blood NEGATIVE TO DATE 04/28/20 13:00 Blood Culture - Preliminary Blood NEGATIVE TO DATE A&P Assessment and plan (1) Abscess of left foot: Twice daily wet-to-dry dressing change using 1 inch Nu Gauze followed by ABDs followed by Kerlix and Wayne wrap Nonweightbearing left forefoot Because of wound complexity patient would be required to follow-up with me at the wound care center for further wound care and evaluation. Return to wound care center this coming Tuesday Assurance and education All questions have been answered and all concerns have been addressed to patient's satisfaction. Status: Acute Attestations Medical Necessity Statement*: Hospitalization for medical and surgical care including wound management Time Spent in Patient Care: 16 - 35 minutes (>than 50% of time spent in counselling and/or direct pt care on unit). Coding Level of Care Code Acute Stem Processing Machine Operator for Prieto Freire Diagnoses Abscess of left foot L02.612
[2020-04-30 10:50] VITALS: BP 127/77; PULSE 79; RESP 16; TEMP 36.7; O2SAT 100
--- NOTE | 2020-04-30 12:50 | PC.NURSE ---
sheet writer gave dc instructions and teachings on dressing changes. sheet writer asked pt if he wanted the shoe or crutches . he stated he didn't want to want to wait today and would try to get crutches from Dr. Sánchez on Tuesday at his follow up visit
--- NOTE | 2020-04-30 13:22 | PM.DCS ---
Discharge Providers Date of Admission: 04/28/20 15:07 Date of Discharge: April 30, 2020 Attending Provider at Admission: Pato Damian MD Attending Provider at Discharge: Pato Damian MD Diagnoses at Discharge Discharge Diagnosis (1) Abscess of left foot: Status: Acute Reason for Visit Reason for Visit: L FOOT INFECTION Hospital Course Hospital Course Shreyas is a 34-year-old white male who was admitted with a left foot abscess. He also had evidence of cellulitis. He had not been febrile. He was placed on broad-spectrum antibiotics, and surgery consultation occurred. He underwent I&D of his abscess on April 29. Prior to this he had a CT scan of his foot demonstrating no osteomyelitis. On April 30 he was doing well. He was afebrile. White blood cell count had significantly decreased. Blood cultures were negative to date. It was thought he could be discharged home on Bactrim with good wound care and follow-up in the wound care clinic. He will also follow-up with his primary care provider secondary to hepatitis C. He is to return for any concerns. Gram stain prior to discharge demonstrated few white blood cells and a few gram-positive cocci in pairs. Physical Exam Narrative: EXAM NARRATIVE: General exam is no apparent distress Cardiovascular regular rate and rhythm, no murmur Lungs clear Abdomen soft with positive bowel sounds Left lower extremity was evaluated with the surgeon. Distal perfusion intact. Discharge Data Data Completed and Pending: Completed Studies During Hospitalization Category Date Time Status CT foot LT w con 91200 Urgent Cat Scan 04/28/20 14:33 Completed XR foot LT min 3V * [id number] Urgent Exams 04/28/20 11:48 Completed Pending at discharge Category Date Time Status Abscess Culture a nd Gram Stain Rout ine Lab 04/29/20 15:17 Results Anaerobic Culture Routine Lab 04/29/20 15:17 Results Blood Culture Sta t Lab 04/28/20 13:10 Results Tissue Culture an d Gram Stain Routi ne Lab 04/29/20 15:17 Results Vancomycin Trough Timed Lab 04/30/20 21:00 Ordered Labs from last 24 hours 04/30/20 04/30/20 04/29/20 01:43 01:43 20:30 WBC 12.7 H RBC 4.29 Hgb 13.2 Hct 39.6 L MCV 92.3 MCH 30.8 MCHC 33.3 RDW 13.0 Plt Count 379 MPV 9.3 Neut % (Auto) 67.9 Lymph % (Auto) 20.0 [place] % (Auto) 8.0 Eos % (Auto) 1.6 Baso % (Auto) 0.5 Neut # (Auto) 8.64 H Lymph # (Auto) 2.6 [place] # (Auto) 1.0 H Eos # (Auto) 0.2 Baso # (Auto) 0.1 Nucleated RBC % (a uto) 0 Nucleated RBCs # 0.0 Sodium 134 L Potassium 3.8 Chloride 102 Carbon Dioxide 25 Anion Gap 10.8 BUN 17 Creatinine 0.6 L GFR Calculation 152.4 H Glucose 135 H Calculated Osmolal ity 282 L Calcium 8.4 L Vancomycin Trough 6.6 L Vitals: Last Vital Signs Temp 98.1 F 04/30/20 10:50 Pulse 79 04/30/20 10:50 Resp 16 04/30/20 10:50 BP 127/77 04/30/20 10:50 Pulse Ox 100 04/30/20 10:50 Discharge Plan Discharge Patient Disposition: Home Condition: Stable Prescriptions: New Bactrim DS 800-160 mg tablet 2 tab PO BID 7 Days Qty: 28 RF: 0 hydrocodone-acetaminophen 5-325 mg tablet 1 tab PO Q6H PRN (Reason: pain) Qty: 10 RF: 0 Continued aspirin 81 mg Tablet,Delayed Release (Dr/Ec) 81 mg PO PRN RF: 0 Tylenol Extra Strength 500 mg Tablet 1,000 - 2,000 mg PO PRN RF: 0 Discharge Orders: Discharge Order (Routine); Ordered 04/30/20 Ordered By: Pato Damian Referrals: Jeniffer Hoang DO [Physician] - 05/16/20 2:00 pm [facility], [Staff Physician] - 05/02/20 2:30 pm (APPOINTMENT WITH DR POWELL AT WOUND CARE [phone]) Discharge Diet: Regular Discharge Activity: Increase activity as tolerated Patient Instructions: Sulfamethoxazole/Trimethoprim (By mouth), Hydrocodone/Acetaminophen (By mouth), Hepatitis C, Cellulitis (DC), Wound Care (General) Activity Restrictions/Additional Instructions: Dressing changes twice daily, per surgery. Please make sure he has supplies before discharge. Instruct family on dressing changes Please arrange follow-up of hepatitis C with provider who treats this through your primary care provider. Discharge Attestations Time Spent in Discharge Care*: greater than 30 min Quality Metrics Clinical Quality Measures During this hospital stay, did patient experience: None Coding Level of Care Code Acute Catalyst Unit Operator for Chg Fwd Diagnoses Abscess of left foot L02.612
[2020-04-30 13:26] VITALS: BP 127/77; PULSE 79; RESP 16; TEMP 36.7; O2SAT 100
== END 2020-04-30 13:20 | disposition home or self-care (01) | DRG 580 ==
LOC: ER 14:52 → MEDSURG 15:56
PROVIDERS: Physician Assistant; Surgery; Admitting Provider Internal Medicine; Emergency Provider Family Medicine; Visit Provider Internal Medicine
PROC: 0KBW0ZZ Excision of Left Foot Muscle, Open Approach (ICD-10-PCS; principal; 2020-04-29 13:25)
DX: L02.612 Cutaneous abscess of left foot (principal); L03.116 Cellulitis of left lower limb; B19.20 Unspecified viral hepatitis C without hepatic coma; F17.220 Nicotine dependence, chewing tobacco, uncomplicated; F15.10 Other stimulant abuse, uncomplicated; Z79.82 Long term (current) use of aspirin
CPT/HCPCS: 12345; 36415; 73630; 73701; 80048; 80053; 80074; 80202; 80306; 83605; 83735; 85025; 86140; 87040; 87070; 87075; 87077; 87176; 87186; 87205; 96365; 96367; 96372; 96375; 99285; J0131; J1170; J1644; J2270; J2405; J2543; J2704; J3010; J3370; J7030; J7050; Q9967

== ENCOUNTER 2020-05-02 14:34 | Outpatient (CLI) | payer OTHER, SELFPAY | END 2020-05-02 14:35 | disposition home or self-care (01) | LOC: WOUND 14:34 | PROVIDERS: Visit Provider Surgery | DX: T81.89XA Other complications of procedures, not elsewhere classified, initial encounter (principal) | CPT/HCPCS: 11043; 11046; G0463 ==

== ENCOUNTER 2020-05-09 15:27 | Outpatient (CLI) | payer OTHER, SELFPAY | END 2020-05-09 15:28 | disposition home or self-care (01) | LOC: WOUND 15:28 | PROVIDERS: Visit Provider Surgery | DX: L97.522 Non-pressure chronic ulcer of other part of left foot with fat layer exposed (principal) | CPT/HCPCS: 11043; 11046; L3260 ==

== ENCOUNTER 2020-05-16 09:05 | Outpatient (CLI) | payer OTHER, SELFPAY | END 2020-05-16 09:06 | disposition home or self-care (01) | LOC: WOUND 09:06 | PROVIDERS: Visit Provider Nurse Practitioner Family | DX: L98.492 Non-pressure chronic ulcer of skin of other sites with fat layer exposed (principal) | CPT/HCPCS: 11042; 11045; 87070; 87176; 87205 ==

== ENCOUNTER 2020-05-23 10:11 | Outpatient (CLI) | payer OTHER, SELFPAY | END 2020-05-23 10:12 | disposition home or self-care (01) | LOC: WOUND 10:11 | PROVIDERS: Visit Provider Nurse Practitioner Family | DX: T81.89XA Other complications of procedures, not elsewhere classified, initial encounter (principal) | CPT/HCPCS: 11042; 11045 ==

== ENCOUNTER 2020-05-30 10:10 | Outpatient (CLI) | payer OTHER, SELFPAY | END 2020-05-30 10:11 | disposition home or self-care (01) | LOC: WOUND 10:11 | PROVIDERS: Visit Provider Surgery | DX: L97.522 Non-pressure chronic ulcer of other part of left foot with fat layer exposed (principal) | CPT/HCPCS: 11043; 11046 ==

== ENCOUNTER 2020-06-06 09:55 | Outpatient (CLI) | payer OTHER, SELFPAY | END 2020-06-06 09:56 | disposition home or self-care (01) | LOC: WOUND 09:55 | PROVIDERS: Visit Provider Surgery | DX: L97.522 Non-pressure chronic ulcer of other part of left foot with fat layer exposed (principal) | CPT/HCPCS: 11043; 11046 ==

== ENCOUNTER 2020-06-13 10:10 | Outpatient (CLI) | payer OTHER, SELFPAY | END 2020-06-13 10:11 | disposition home or self-care (01) | LOC: WOUND 10:10 | PROVIDERS: Visit Provider Surgery | DX: L97.522 Non-pressure chronic ulcer of other part of left foot with fat layer exposed (principal) | CPT/HCPCS: 11043; 11046 ==

== ENCOUNTER 2020-06-20 09:44 | Outpatient (CLI) | payer OTHER, SELFPAY | END 2020-06-20 09:45 | disposition home or self-care (01) | LOC: WOUND 09:44 | PROVIDERS: Visit Provider Surgery | DX: T81.89XA Other complications of procedures, not elsewhere classified, initial encounter (principal) | CPT/HCPCS: 11042 ==

== ENCOUNTER 2020-06-27 09:37 | Outpatient (CLI) | payer OTHER, SELFPAY | END 2020-06-27 09:38 | disposition home or self-care (01) | LOC: WOUND 09:38 | PROVIDERS: Visit Provider Surgery | DX: T81.89XA Other complications of procedures, not elsewhere classified, initial encounter (principal) | CPT/HCPCS: 11042 ==

== ENCOUNTER 2020-07-04 09:42 | Outpatient (CLI) | payer OTHER, SELFPAY | END 2020-07-04 09:43 | disposition home or self-care (01) | LOC: WOUND 09:43 | PROVIDERS: Visit Provider Nurse Practitioner Family | DX: T81.89XA Other complications of procedures, not elsewhere classified, initial encounter (principal) | CPT/HCPCS: 97597 ==

== ENCOUNTER 2020-07-11 08:56 | Outpatient (CLI) | payer OTHER, SELFPAY | END 2020-07-11 08:57 | disposition home or self-care (01) | LOC: WOUND 08:56 | PROVIDERS: Visit Provider Surgery | DX: T81.89XA Other complications of procedures, not elsewhere classified, initial encounter (principal) | CPT/HCPCS: 11042 ==

== ENCOUNTER 2020-07-18 09:52 | Outpatient (CLI) | payer OTHER, SELFPAY | END 2020-07-18 09:53 | disposition home or self-care (01) | LOC: WOUND 09:53 | PROVIDERS: Visit Provider Nurse Practitioner Family | DX: T81.89XA Other complications of procedures, not elsewhere classified, initial encounter (principal); Y83.8 Other surgical procedures as the cause of abnormal reaction of the patient, or of later complication, without mention of misadventure at the time of the procedure | CPT/HCPCS: 11042 ==

== ENCOUNTER 2020-08-01 09:33 | Outpatient (CLI) | payer OTHER, SELFPAY | END 2020-08-01 09:34 | disposition home or self-care (01) | LOC: WOUND 09:35 | PROVIDERS: Visit Provider Surgery | DX: T81.89XA Other complications of procedures, not elsewhere classified, initial encounter (principal); Y83.8 Other surgical procedures as the cause of abnormal reaction of the patient, or of later complication, without mention of misadventure at the time of the procedure | CPT/HCPCS: 11042 ==

== ENCOUNTER 2020-08-08 09:10 | Outpatient (CLI) | payer OTHER, SELFPAY | END 2020-08-08 09:11 | disposition home or self-care (01) | LOC: WOUND 09:11 | PROVIDERS: Visit Provider Surgery | DX: T81.89XA Other complications of procedures, not elsewhere classified, initial encounter (principal); Y83.8 Other surgical procedures as the cause of abnormal reaction of the patient, or of later complication, without mention of misadventure at the time of the procedure | CPT/HCPCS: 11042 ==

== ENCOUNTER 2020-08-15 09:06 | Outpatient (CLI) | payer OTHER, SELFPAY | END 2020-08-15 09:07 | disposition home or self-care (01) | LOC: WOUND 09:09 | PROVIDERS: Visit Provider Nurse Practitioner Family | DX: T81.89XA Other complications of procedures, not elsewhere classified, initial encounter (principal); Y83.8 Other surgical procedures as the cause of abnormal reaction of the patient, or of later complication, without mention of misadventure at the time of the procedure | CPT/HCPCS: 11042 ==

== ENCOUNTER 2020-08-29 10:07 | Outpatient (CLI) | payer OTHER, SELFPAY | END 2020-08-29 10:08 | disposition home or self-care (01) | LOC: WOUND 10:08 | PROVIDERS: Visit Provider Surgery | DX: Z09 Encounter for follow-up examination after completed treatment for conditions other than malignant neoplasm (principal) | CPT/HCPCS: 99212 ==

== ENCOUNTER 2023-04-07 17:35 | Outpatient (CLI) | payer MEDICAID, SELFPAY ==
[2023-04-08 00:18] LABS: Hepatitis A Antibody IgM Non-Reactive (Nonreactive); Hepatitis B Core AB, Total Reactive (Nonreactive); Hepatitis B Surface AB 4.4 (11.5-1000); Hepatitis B Surface Antigen Non-Reactive (Nonreactive); Hepatitis C Virus Antibody Reactive (Nonreactive)
== END 2023-04-07 17:36 | disposition home or self-care (01) ==
PROVIDERS: Visit Provider Registered Nurse Neonatal Intensive Care
DX: B19.20 Unspecified viral hepatitis C without hepatic coma (principal)
CPT/HCPCS: 86705; 86706; 86709; 86803; 87340

== ENCOUNTER → 2023-04-14 15:18 | Outpatient (BNVA) | payer MEDICAID, SELFPAY | PROVIDERS: PCP Nurse Practitioner Family; Visit Provider Nurse Practitioner Family | DX: F15.10 Other stimulant abuse, uncomplicated (principal); B19.20 Unspecified viral hepatitis C without hepatic coma; F11.20 Opioid dependence, uncomplicated | CPT/HCPCS: 80048; 80076; 87522; 87902 ==

== ENCOUNTER 2023-05-12 15:52 | Outpatient (CLI) | payer MEDICAID, SELFPAY | END 2023-05-12 15:53 | disposition home or self-care (01) | LOC: LAB 15:54 | PROVIDERS: PCP Nurse Practitioner Family; Visit Provider Nurse Practitioner Family | DX: B19.20 Unspecified viral hepatitis C without hepatic coma (principal) | CPT/HCPCS: 85025 ==

== ENCOUNTER 2023-05-18 09:14 | Outpatient (CLI) | payer MEDICAID, SELFPAY ==
--- NOTE | 2023-05-18 09:45 | US_ITS ---
WS: [id number] RIGHT UPPER QUADRANT ULTRASOUND HISTORY: hep c, elevated ast/alt COMPARISON: None available. Liver: 17.4 cm in length. Normal size liver and echogenicity. No bile duct dilatation or mass. Portal Vein: Normal hepatopetal flow with monophasic waveform. Gallbladder: Normally distended gallbladder with no stones or wall thickening. CBD: 0.4 cm Pancreas: Completely obscured. Right kidney: 11.7 cm in length. Normal size and echogenicity. No hydronephrosis or mass. Aorta and IVC: Poorly visualized. No ascites. IMPRESSION: 1. Normal gallbladder. 2. Negative liver. 3. Poorly visualized pancreas.
== END 2023-05-18 09:15 | disposition home or self-care (01) ==
LOC: RAD 09:14
PROVIDERS: PCP Nurse Practitioner Family; Visit Provider Family Medicine
DX: B19.20 Unspecified viral hepatitis C without hepatic coma (principal)
CPT/HCPCS: 76705

== ENCOUNTER 2023-05-18 09:37 | Outpatient (CLI) | payer MEDICAID, SELFPAY ==
[2023-05-18 10:24] LABS: Basophils # 0.1 10^3/uL (0.0-0.1); Basophils % 0.8 %; Eosinophils # 0.1 10^3/uL (0.0-0.8); Eosinophils % 1.8 %; Hematocrit 43.3 % (37-53); Lymphocytes # 2.7 10^3/uL (0.8-4.8); Lymphocytes % 40.1 %; Mean Corpuscular HGB Conc 32.3 g/dL (30-55); Mean Corpuscular Volume 92.9 fl (82-101); Mean Platelet Volume 10.5 fL (7.4-10.4); Monocytes # 0.4 10^3/uL (0.2-0.9); Monocytes % 5.6 %; Neutrophils % 51.4 %; Nucleated Red Blood Cells % 0 %; Platelet Count 217 10^3/cmm (157-399); Red Blood Count 4.66 10^6/uL (3.85-5.65); Red Cell Distribution Width 14.8 % (12.1-15.1); White Blood Count 6.61 10^3/uL (3.29-11.43)
[2023-05-18 10:35] LABS: INR 1.08 (0.8-1.2)
[2023-05-18 11:00] LABS: HIV 1 & 2 Antibody Non-Reactive (Non-Reactiv); HIV 1 & 2 Antigen Non-Reactive (Non-Reactiv)
[2023-05-20 14:23] LABS: Hepatitis B Envelope Antigen NON-REACTIVE (NON-REACTIVE)
== END 2023-05-18 09:38 | disposition home or self-care (01) ==
LOC: LAB 09:39
PROVIDERS: PCP Nurse Practitioner Family; Visit Provider Family Medicine
DX: B19.20 Unspecified viral hepatitis C without hepatic coma (principal)
CPT/HCPCS: 36415; 85025; 85610; 87350; 87806